=== PATIENT | female | born 1990 | race Caucasian/White ===

== ENCOUNTER 2017-09-30 09:36 | Emergency (ER) | payer OTHER ==
[2017-09-30] MEDS: ACETAMINOPHEN 500 MG TAB PO (11:29)
== END 2017-09-30 18:37 | disposition home or self-care (01) ==
LOC: FTE 18:37
DX: J20.9 Acute bronchitis, unspecified (principal)
CPT/HCPCS: 71045; 87400; 99284-25

== ENCOUNTER 2018-05-19 19:04 | Emergency (ER) | payer OTHER ==
[2018-05-19] MEDS: ACETAMINOPHEN 500 MG TAB PO (20:05)
== END 2018-05-19 20:31 | disposition home or self-care (01) ==
LOC: FTE 19:04
DX: J02.9 Acute pharyngitis, unspecified (principal)
CPT/HCPCS: 99283; Z7502

== ENCOUNTER 2018-10-14 22:34 | Emergency (ER) | payer SELFPAY, OTHER ==
[2018-10-15] MEDS: SOD CHLORIDE 0.9% 1,000 ML IV (01:10)
[2018-10-15] MEDS: METHYLPREDNISOLONE 125 MG INJ IV (01:11)
[2018-10-15] MEDS: KETOROLAC 30 MG INJ IV (01:11)
[2018-10-15] MEDS: CEFTRIAXONE 1 GM/50 ML (PMX) 50 ML IVPB (01:11)
[2018-10-15] MEDS: ACETAMINOPHEN 650MG/20.3ML CUP PO (01:12)
== END 2018-10-15 02:28 | disposition home or self-care (01) ==
LOC: FTE 22:34
DX: J03.90 Acute tonsillitis, unspecified (principal)
CPT/HCPCS: 81025; 96365; 96375; 99284-25